=== PATIENT | male | born 1975 | race Caucasian/White ===

== ENCOUNTER 2017-01-15 09:44 | Inpatient (IN) | payer OTHER ==
[~2017-01-15] VITALS: Ht 177.8 cm; Wt 90.5 kg
[2017-01-15 09:56] LABS: BASOPHILS # (AUTO) 0.1 10^3/uL (0.0-0.1); BASOPHILS % (AUTO) 1 % (0-10); EOSINOPHILS # (AUTO) 0.1 10^3/uL (0.0-0.3); EOSINOPHILS % (AUTO) 2 % (0-10); LYMPHOCYTES # (AUTO) 2.2 X 10^3 (1.0-4.0); LYMPHOCYTES % (AUTO) 40 % (12-44); MEAN CORPUSCULAR HEMOGLOBIN 31 PG (25-34); MEAN CORPUSCULAR HGB CONC 36 G/DL (32-36); MEAN CORPUSCULAR VOLUME 86 FL (80-99); MEAN PLATELET VOLUME 9.4 FL (7.4-10.4); MONOCYTES # (AUTO) 0.8 X 10^3 (0.0-1.0); MONOCYTES % (AUTO) 14 % (0-12); NEUTROPHILS # (AUTO) 2.3 X 10^3 (1.8-7.8); NEUTROPHILS % (AUTO) 43 % (42-75); PLATELET COUNT 257 10^3/uL (130-400); RED BLOOD COUNT 5.08 10^6/uL (4.35-5.85); RED CELL DISTRIBUTION WIDTH 12.8 % (10.0-14.5); WHITE BLOOD COUNT 5.4 10^3/uL (4.3-11.0)
[2017-01-15 10:25] LABS: ALANINE AMINOTRANSFERASE 25 U/L (0-55); ALBUMIN 3.8 GM/DL (3.2-4.5); ALCOHOL < 10 MG/DL (<10); ANION GAP 8 MMOL/L (5-14); ASPARTATE AMINO TRANSFERASE 19 U/L (5-34); BILIRUBIN,TOTAL 0.6 MG/DL (0.1-1.0); BLOOD UREA NITROGEN 10 MG/DL (7-18); BUN/CREATININE RATIO 13; CALCIUM 8.8 MG/DL (8.5-10.1); CARBON DIOXIDE 25 MMOL/L (21-32); CHLORIDE 107 MMOL/L (98-107); CREATININE SERUM 0.76 MG/DL (0.60-1.30); GFR ESTIMATED > 60; GLUCOSE 109 MG/DL (70-105); POTASSIUM 3.4 MMOL/L (3.6-5.0); SODIUM 140 MMOL/L (135-145); TOTAL PROTEIN 6.3 GM/DL (6.4-8.2)
[2017-01-15] MEDS ORDERED: NS IV 1000 ML 1,000 ML ONE (10:28)
[2017-01-15] MEDS ORDERED: ONDANSETRON 4 MG/2 ML (SDV) Z0FRAN ONE (10:28)
[2017-01-15 10:30] LABS: TROPONIN I < 0.30 NG/ML (<0.30)
[2017-01-15] MEDS: NS IV 1000 ML 1,000 ML IV SCH ×4 (10:30→22:23)
[2017-01-15] MEDS ORDERED: ONDANSETRON 4 MG/2 ML (SDV) Z0FRAN IVP ONE (10:45)
[2017-01-15 11:06] LABS: KETONES,URINE 1+ (NEGATIVE); LEUKOCYTE ESTERASE ,URINE 1+ (NEGATIVE); NITRITE,URINE NEGATIVE (NEGATIVE); PH,URINE 6 (5-9); PROTEIN,URINE 2+ (NEGATIVE); UROBILINOGEN,URINE 8 MG/DL (NORMAL)
[2017-01-15 11:21] LABS: BILIRUBIN,URINE 1+ (NEGATIVE)
--- NOTE | 2017-01-15 11:49 | ED Neurological Problem ---
General Chief Complaint: General Problems/Pain Stated Complaint: POSS STROKE Nursing Triage Note: PT STATES HE FELL THURSDAY NIGHT AND HAD SUDDEN ONSET L SIDED WEAKNESS WELL NAUSEA AND VOMITING. STATES HE WAS UNABLE TO STAND AND REMAINED ON THE FLOOR UNTIL PD ARRIVED TODAY. CO VOMITING [facility] TODAY. Nursing Sepsis Screen: No Definite Risk Source: patient Exam Limitations: no limitations History of Present Illness Time seen by provider: 11:30 Initial Comments The patient is a 41-year-old white male. He reports that one week ago today he became weak on the left side of his body. He was on the floor and remained there until today. He had been able to drag himself to the bathroom. He denied any pain. He reports that yesterday he began to be able to use his left leg began and can straight leg lift with difficulty and he demonstrates this. He was able to straight leg lift on the left to 45 but was unable to lower it but rather let it drop. He has no past history of hypertension. He denies a headache. He was found by others who summoned the ambulance. Timing/Duration: 1 week Associated Symptoms: trouble walking, weakness Allergies and Home Medications Allergies Coded Allergies: No Known Drug Allergies (Unverified , 01/15/17) Constitutional: see HPI Eyes: No Symptoms Reported Ears, Nose, Mouth, Throat: no symptoms reported Cardiovascular: no symptoms reported Gastrointestinal: abdominal pain, loss of appetite, vomiting Genitourinary: no symptoms reported Musculoskeletal: muscle weakness Skin: no symptoms reported Psychiatric/Neurological: No Symptoms Reported Past Pirlqyf-Wvyrbz-Dfgwek Hx Patient Social History Alcohol Use: Rarely Uses Recreational Drug Use: Yes Drug of Choice: MARIJUANA Smoking Status: Current Everyday Smoker Type Used: Cigarettes Recent Foreign Travel: No Contact w/Someone Who Travel: No Recent Infectious Disease Expo: No Physical Exam Vital Signs Vital Sign - Last 12Hours 01/15/17 09:44 Temp 97.8 Pulse 90 Resp 16 B/P (MAP) 131/84 Pulse Ox 95 Capillary Refill : Less Than 3 Seconds General Appearance: other (the patient appears comfortable and his speech is clear) HEENT: normal ENT inspection Neck: full range of motion Respiratory: chest non-tender, lungs clear, normal breath sounds, no respiratory distress, no accessory muscle use, respiratory distress Cardiovascular: normal peripheral pulses, regular rate, rhythm, no edema, no gallop, no JVD, no murmur Gastrointestinal: other (tender to palpation particularly in the epigastrium. Bowel sounds are hypoactive.) Back: normal inspection Extremities: other (the left upper extremity is flaccid. There appears to be early flexion contractures at the hand. He is able to straight leg lift the left leg with great effort to 45. He is not able to smoothly lower the leg but rather lets it drop.) Crainal Nerves: normal hearing, normal speech, PERRL, facial droop (left), tongue deviation to L Skin: normal color, warm/dry Lymphatic: no adenopathy Progress/Results/Core Measures Results/Orders Lab Results Laboratory Tests Test 01/15/17 09:40 01/15/17 10:55 Range/Units White Blood Count 5.4 4.3-11.0 10^3/uL Red Blood Count 5.08 4.35-5.85 10^6/uL Hemoglobin 15.5 13.3-17.7 G/DL Hematocrit 44 40-54 % Mean Corpuscular Volume 86 80-99 FL Mean Corpuscular Hemoglobin 31 25-34 PG Mean Corpuscular Hemoglobin Concent 36 32-36 G/DL Red Cell Distribution Width 12.8 10.0-14.5 % Platelet Count 257 130-400 10^3/uL Mean Platelet Volume 9.4 7.4-10.4 FL Neutrophils (%) (Auto) 43 42-75 % Lymphocytes (%) (Auto) 40 12-44 % Monocytes (%) (Auto) 14 H 0-12 % Eosinophils (%) (Auto) 2 0-10 % Basophils (%) (Auto) 1 0-10 % Neutrophils # (Auto) 2.3 1.8-7.8 X 10^3 Lymphocytes # (Auto) 2.2 1.0-4.0 X 10^3 Monocytes # (Auto) 0.8 0.0-1.0 X 10^3 Eosinophils # (Auto) 0.1 0.0-0.3 10^3/uL Basophils # (Auto) 0.1 0.0-0.1 10^3/uL Sodium Level 140 135-145 MMOL/L Potassium Level 3.4 L 3.6-5.0 MMOL/L Chloride Level 107 98-107 MMOL/L Carbon Dioxide Level 25 21-32 MMOL/L Anion Gap 8 5-14 MMOL/L Blood Urea Nitrogen 10 7-18 MG/DL Creatinine 0.76 0.60-1.30 MG/DL Estimat Glomerular Filtration Rate > 60 BUN/Creatinine Ratio 13 Glucose Level 109 H 70-105 MG/DL Calcium Level 8.8 8.5-10.1 MG/DL Total Bilirubin 0.6 0.1-1.0 MG/DL Aspartate Amino Transf (AST/SGOT) 19 5-34 U/L Alanine Aminotransferase (ALT/SGPT) 25 0-55 U/L Alkaline Phosphatase 39 L 40-136 U/L Troponin I < 0.30 <0.30 NG/ML Total Protein 6.3 L 6.4-8.2 GM/DL Albumin 3.8 3.2-4.5 GM/DL Serum Alcohol < 10 <10 MG/DL Urine Color YELLOW Urine Clarity CLEAR Urine pH 6 5-9 Urine Specific [place] 1.020 1.016-1.022 Urine Protein 2+ H NEGATIVE Urine Glucose (UA) NEGATIVE NEGATIVE Urine Ketones 1+ H NEGATIVE Urine Nitrite NEGATIVE NEGATIVE Urine Bilirubin 1+ H NEGATIVE Urine Urobilinogen 8 H NORMAL MG/DL Urine Leukocyte Esterase 1+ H NEGATIVE Urine RBC (Auto) 1+ H NEGATIVE Urine RBC 2-5 H /HPF Urine WBC 2-5 /HPF Urine Squamous Epithelial Cells NONE /HPF Urine Crystals NONE /LPF Urine Bacteria NEGATIVE /HPF Urine Casts NONE /LPF Urine Mucus LARGE H /LPF Urine Culture Indicated NO Urine Opiates Screen NEGATIVE NEGATIVE Urine Oxycodone Screen NEGATIVE NEGATIVE Urine Methadone Screen NEGATIVE NEGATIVE Urine Propoxyphene Screen NEGATIVE NEGATIVE Urine Barbiturates Screen NEGATIVE NEGATIVE Ur Tricyclic Antidepressants Screen NEGATIVE NEGATIVE Urine Phencyclidine Screen NEGATIVE NEGATIVE Urine Amphetamines Screen NEGATIVE NEGATIVE Urine Methamphetamines Screen NEGATIVE NEGATIVE Urine Benzodiazepines Screen NEGATIVE NEGATIVE Urine Cocaine Screen NEGATIVE NEGATIVE Urine Cannabinoids Screen POSITIVE H NEGATIVE My Orders Orders - CARLOS WALKER MD Ekg Tracing (01/15/17 09:48) Alcohol (01/15/17 09:48) Cbc With Automated Diff (01/15/17 09:48) Comprehensive Metabolic Panel (01/15/17 09:48) Drug Screen Stat (Urine) (01/15/17 09:48) Troponin I (01/15/17 09:48) Ua Culture If Indicated (01/15/17 09:48) Ns Iv 1000 Ml (Sodium Chloride 0.9%) (01/15/17 10:45) Ondansetron Injection (Zofran Injectio (01/15/17 10:45) Ondansetron Injection (Zofran Injectio (01/15/17 10:28) Ns Iv 1000 Ml (Sodium Chloride 0.9%) (01/15/17 10:28) Ct Abd/Pelv W (Appendicitis) (01/15/17 11:38) Ct Head Wo (01/15/17 11:38) Iohexol Injection (Omnipaque 350 Mg/Ml 1 (01/15/17 12:00) Ns (Ivpb) (Sodium Chloride 0.9% Ivpb Bag (01/15/17 12:00) Medications Given in ED Current Medications Medications Dose Ordered Sig/Lis Route Start Time Stop Time Status Last Admin Dose Admin Iohexol 100 ml ONCE ONCE IV 01/15/17 12:00 01/15/17 12:01 DC 01/15/17 12:28 100 ML Ondansetron HCl 8 mg ONCE ONCE IVP 01/15/17 10:45 01/15/17 10:46 DC 01/15/17 10:30 8 MG Sodium Chloride 100 ml ONCE ONCE IV 01/15/17 12:00 01/15/17 12:01 DC 01/15/17 12:28 80 ML Vital Signs/I&O Vital Sign - Last 12Hours 01/15/17 09:44 Temp 97.8 Pulse 90 Resp 16 B/P (MAP) 131/84 Pulse Ox 95 Blood Pressure Mean: 100 Departure Communication Progress Notes 1354 CT scans were negative. Discussed with IRF and they will come to ER with PT to evaluate appropriateness 1449 staff from the IRF and the physical therapy department came to the emergency room and evaluated the patient. They agree that there appears to be a left-sided abnormality but the history believes a lot to be desired. It was agreed that we would admit him for observation and do an MRI in the morning. I discussed this with Dr. Suh who is the hospitalist and she agrees. Impression Impression: Primary Impression: left-sided weakness/apparent hemiparesis Disposition: ADMITTED INPATIENT Condition: Stable/Unchanged Departure-Patient Inst. Referrals: NO,LOCAL PHYSICIAN (PCP/Family) Primary Care Physician CARLOS WALKER MD Jan 15, 2017 11:49
[2017-01-15] MEDS ORDERED: NS 100 ML (IVPB) BAG IV ONE (12:00)
[2017-01-15] MEDS ORDERED: IOHEXOL 350 MG/ML 100 ML (OMNIPAQUE 350) VIAL IV ONE (12:00)
--- NOTE | 2017-01-15 12:37 | Diagnostic Imaging Report ---
PROCEDURE: CT head without contrast. TECHNIQUE: Multiple contiguous axial images were obtained through the brain without the use of intravenous contrast. INDICATION: Left-sided paralysis. COMPARISON: None FINDINGS: No acute intracranial hemorrhage, mass effect or edema is demonstrated. Whalen-white junction is preserved. Ventricles appear normal. No focal abnormality is demonstrated. The paranasal sinuses and mastoids are clear as visualized. IMPRESSION: No evidence of an acute intracranial abnormality. Dictated by: Dictated on workstation # [id number]
--- NOTE | 2017-01-15 12:49 | Diagnostic Imaging Report ---
PROCEDURE: CT abdomen and pelvis with contrast, rule out appendicitis. TECHNIQUE: Multiple contiguous axial images were obtained through the abdomen and pelvis after the administration of intravenous contrast. INDICATION: Possible appendicitis. COMPARISON: None. FINDINGS: The lung bases are clear. There is some focal low-density adjacent to the falciform ligament which is likely some focal fatty change. The gallbladder appears unremarkable. The portal vein enhances normally. There is no biliary dilatation. The pancreas, spleen, and adrenal glands appear unremarkable. There are a couple of probable tiny cysts in left renal cortex, and there is a slightly larger 2.0-cm cyst in the inferior right renal cortex. The kidneys are otherwise unremarkable in appearance. The ureters and bladder appear unremarkable. The appendix appears normal. There is no evidence of bowel obstruction or focal inflammatory process. There is no ascites or free air. No abnormally enlarged lymph nodes are demonstrated. Abdominal aorta appears normal in caliber. The osseous structures appear unremarkable. IMPRESSION: 1. The appendix appears normal. No acute focal inflammatory process is suspected. 2. Probable focal fatty change about the falciform ligament of the liver. 3. Bilateral renal cysts. Dictated by: Dictated on workstation # [id number]
[2017-01-15 15:40] VITALS: BP 119/77
--- NOTE | 2017-01-15 17:58 | Consultation-Cardiology ---
HPI-Cardiology Cardiology Consultation: Date of Consultation 01/15/17 Time Seen by Provider: 17:40 Date of Admission Attending Physician Amy Suh DO Admitting Physician Kimberly,Local Physician Consulting Physician MIKE MAGANA MD, MA, FACP, FACC, [facility], CCDS Physician requesting consult: Dr Casillas / Dr Suh HPI: Chief Complaint: L-sided weakness HPI: 41 yo man who has had L-sided profound weakness for the last approx one week and was brought to the ER by his friend and admitted to Dr Suh He denies cp or palp or syncope or leg swelling or fever or chills Review of Systems-Cardiology Review of Systems Constitutional: malaise, tiredness, No weight loss, No weight gain Eyes: No vision change Ears/Nose/Throat: No ear discharge, No nasal drainage, No recent hearing loss Respiratory: As described under HPI Cardiovascular: As described under HPI Gastrointestinal: No constipation, No diarrhea, No nausea, No vomiting Genitourinary: No dysuria, No hematuria, No urine frequency changes Musculoskeletal: No back pain Skin: No rash, No ulcerations Psychiatric/Neurological: As described under HPI Hematologic: No bleeding abnormalities AWE-Dgnngg-Cleykc Hx Patient Social History Alcohol Use: Rarely Uses Recreational Drug Use: Yes Drug of Choice: MARIJUANA Smoking Status: Current Everyday Smoker Type Used: Cigarettes Recent Foreign Travel: No Recent Infectious Disease Expo: No Past Medical History PMH As described under Assessment. Family Medical History Family Medical History: Mother had irreg heart beat and hypertension in her 40s Allergies and Home Medications Allergies Coded Allergies: No Known Drug Allergies (Unverified , 01/15/17) Home Medications No Active Prescriptions or Reported Meds Physical Exam-Cardiology Physical Exam Vital Signs/I&O Vital Sign - Last 12Hours 01/15/17 01/15/17 01/15/17 01/15/17 09:44 15:23 15:40 15:40 Temp 97.8 98.0 Pulse 90 96 91 Resp 16 16 20 B/P (MAP) 131/84 119/77 Pulse Ox 95 96 97 97 O2 Delivery Room Air Room Air Capillary Refill : Less Than 3 Seconds Constitutional: AAO x 3, well-developed, well-nourished HEENT: No PERRL, No EOMI, No xanthelasmas are seen Neck: No carotid bruit, carotid pulses are 2 + bilaterally, with good upstrokes Respiratory: No accessory muscle use, No stridor, other (good bilat air entry) Cardiovascular: regular rate-rhythm, S1 and S2, systolic murmur (faint CHERRY at cardiac base) Gastrointestinal: No tender, soft, No guarding, No rebound, audible bowel sounds Extremities: No pedal edema, No clubbing, No cyanosis Neurologic/Psychiatric: oriented x 3, motor weakness (3/5 power in the L upper and lower limbs) Skin: No rash on exposed areas, No ulcerations on exposed areas Lymphatic: no adenopathy Data Review Labs Laboratory Tests 01/15/17 09:40: White Blood Count 5.4, Red Blood Count 5.08, Hemoglobin 15.5, Hematocrit 44, Mean Corpuscular Volume 86, Mean Corpuscular Hemoglobin 31, Mean Corpuscular Hemoglobin Concent 36, Red Cell Distribution Width 12.8, Platelet Count 257, Mean Platelet Volume 9.4, Neutrophils (%) (Auto) 43, Lymphocytes (%) (Auto) 40, Monocytes (%) (Auto) 14H, Eosinophils (%) (Auto) 2, Basophils (%) (Auto) 1, Neutrophils # (Auto) 2.3, Lymphocytes # (Auto) 2.2, Monocytes # (Auto) 0.8, Eosinophils # (Auto) 0.1, Basophils # (Auto) 0.1, Sodium Level 140, Potassium Level 3.4L, Chloride Level 107, Carbon Dioxide Level 25, Anion Gap 8, Blood Urea Nitrogen 10, Creatinine 0.76, Estimat Glomerular Filtration Rate > 60, BUN/ Creatinine Ratio 13, Glucose Level 109H, Calcium Level 8.8, Total Bilirubin 0.6 , Aspartate Amino Transf (AST/SGOT) 19, Alanine Aminotransferase (ALT/SGPT) 25, Alkaline Phosphatase 39L, Troponin I < 0.30, Total Protein 6.3L, Albumin 3.8, Serum Alcohol < 10 01/15/17 10:55: Urine Color YELLOW, Urine Clarity CLEAR, Urine pH 6, Urine Specific [place] 1.020, Urine Protein 2+H, Urine Glucose (UA) NEGATIVE, Urine Ketones 1+H, Urine Nitrite NEGATIVE, Urine Bilirubin 1+H, Urine Urobilinogen 8H, Urine Leukocyte Esterase 1+H, Urine RBC (Auto) 1+H, Urine RBC 2-5H, Urine WBC 2-5, Urine Squamous Epithelial Cells NONE, Urine Crystals NONE, Urine Bacteria NEGATIVE, Urine Casts NONE, Urine Mucus LARGEH, Urine Culture Indicated NO, Urine Opiates Screen NEGATIVE, Urine Oxycodone Screen NEGATIVE, Urine Methadone Screen NEGATIVE, Urine Propoxyphene Screen NEGATIVE, Urine Barbiturates Screen NEGATIVE , Ur Tricyclic Antidepressants Screen NEGATIVE, Urine Phencyclidine Screen NEGATIVE, Urine Amphetamines Screen NEGATIVE, Urine Methamphetamines Screen NEGATIVE, Urine Benzodiazepines Screen NEGATIVE, Urine Cocaine Screen NEGATIVE, Urine Cannabinoids Screen POSITIVEH Laboratory Tests 01/15/17 09:40 ECG Impression ECG Comment ECG on 01/15/17: NSR A/P-Cardiology Assessment/Admission Diagnosis Acute L hemiparesis of unclear etiology, being managed by Dr Suh ?UTI, being managed by Dr Suh No evidence of any acute cardiac issues No other history reported Denies drug use, but urine positive for cannabinoids Discussion and Recomendations * Tele x 24 hours to evaluate for any arrhythmia * Replenish K * Carotid u/s * Echo * Treatment of possible stroke/UTI is with Dr Suh Clinical Quality Measures DVT/VTE Risk/Contraindication: Risk Factor Score Per Nursin RFS Level Per Nursing on Admit: 4+=Very High MIKE MAGANA MD FACP FAC CCDS Jan 15, 2017 17:58
[2017-01-15] MEDS ORDERED: ENOXAPARIN 40 MG/0.4 ML (LOVENOX) SYR SC SCH (18:15)
[2017-01-15] MEDS ORDERED: POTASSIUM CL 10MEQ/50ML IVPB 50 ML IV NR (18:25)
[2017-01-15 20:00] VITALS: BP 135/79
[2017-01-16] VITALS: BP 121/64
[2017-01-16] MEDS: NS IV 1000 ML 1,000 ML IV SCH ×4 (02:30→16:53)
[2017-01-16 04:00] VITALS: BP 136/73
[2017-01-16 04:58] LABS: MEAN PLATELET VOLUME 9.5 FL (7.4-10.4); RED BLOOD COUNT 4.91 10^6/uL (4.35-5.85); RED CELL DISTRIBUTION WIDTH 12.8 % (10.0-14.5)
[2017-01-16 05:46] LABS: ANION GAP 10 MMOL/L (5-14); BLOOD UREA NITROGEN 6 MG/DL (7-18); BUN/CREATININE RATIO 9; CALCIUM 8.4 MG/DL (8.5-10.1); CARBON DIOXIDE 20 MMOL/L (21-32); CHLORIDE 110 MMOL/L (98-107); CREATININE SERUM 0.69 MG/DL (0.60-1.30); GFR ESTIMATED > 60; GLUCOSE 89 MG/DL (70-105); MAGNESIUM 1.9 MG/DL (1.8-2.4); POTASSIUM 3.8 MMOL/L (3.6-5.0); SODIUM 140 MMOL/L (135-145)
[2017-01-16 06:13] LABS: THYROID STIMULATING HORMONE 0.44 UIU/ML (0.35-4.94)
[2017-01-16 08:00] VITALS: BP 131/70
--- NOTE | 2017-01-16 08:45 | History & Physical-Hospitalist ---
HPI History of Present Illness: HPI/Chief Complaint CC: Left sided weakness x 7 days HPI: This is a 41-year-old white male smoker but hasn't seen a physician in the very long time the presents to the emergency room after his neighbor brought him in after an abrupt onset of left-sided weakness 7 days prior. He did not seek medical attention until yesterday. CT scan did not show any acute stroke so MRI will be performed and I have consulted cardiology for further risk stratification for stroke protocol. Physical therapy did see him found him to have increasing strength and was able to walk but peculiar signs on physical exam that are not really consistent with a stroke but unsure of the source of his debility. Source: patient Exam Limitations: no limitations Date Seen 01/16/17 Time Seen by Provider: 07:30 Attending Physician Amy Suh DO PCP No,Local Physician Referring Physician Date of Admission Jan 15, 2017 at 15:11 Home Medications & Allergies Home Medications Reviewed patient Home Medication Reconciliation Form Allergies Allergies Coded Allergies No Known Drug Allergies (Unverified01/15/17) Past Vbhxsfd-Yebaum-Qtzloq Hx Patient Social History Marrital Status: single Employed/Student: unemployed Alcohol Use: Rarely Uses Recreational Drug Use: Yes Drug of Choice: MARIJUANA Smoking Status: Current Everyday Smoker Type Used: Cigarettes Recent Foreign Travel: No Contact w/other who traveled: No Recent Infectious Disease Expo: No Surgeries HX Surgeries: No Respiratory Hx Respiratory Disorders: No Cardiovascular Hx Cardiovascular Disorders: No Neurological Hx Neurological Disorders: No Genitourinary Hx Genitourinary Disorders: No Gastrointestinal Hx Gastrointestinal Disorders: No Musculoskeletal Hx Musculoskeletal Disorders: No Endocrine Hx Endocrine Disorders: No HEENT HX ENT Disorders: No Cancer Hx Cancer: No Psychosocial Hx Psychiatric Problems: No Integumentary HX Skin/Integumentary Disorder: No Review of Systems Constitutional: see HPI, dizziness, weakness EENTM: no symptoms reported Respiratory: no symptoms reported Cardiovascular: no symptoms reported Gastrointestinal: no symptoms reported Genitourinary: decreased output Musculoskeletal: no symptoms reported Skin: no symptoms reported Psychiatric/Neurological: Weakness (left side) Physical Exam Physical Exam Vital Signs Vital Sign - Last 12Hours 01/15/17 09:44 Temp 97.8 Pulse 90 Resp 16 B/P (MAP) 131/84 Pulse Ox 95 Capillary Refill : Less Than 3 Seconds General Appearance: No Apparent Distress, WD/WN, Chronically ill Eyes: Bilateral Eye Normal Inspection, Bilateral Eye PERRL HEENT: PERRL/EOMI, Normal ENT Inspection, Pharynx Normal Neck: Full Range of Motion, Normal Inspection, Non Tender, Supple, Carotid Bruit Respiratory: Chest Non Tender, Lungs Clear, Normal Breath Sounds, No Accessory Muscle Use, No Respiratory Distress Cardiovascular: Regular Rate, Rhythm, No Edema, No Gallop, No JVD, No Murmur, Normal Peripheral Pulses Gastrointestinal: Normal Bowel Sounds, No Organomegaly, No Pulsatile Mass, Non Tender, Soft Back: Normal Inspection, No CVA Tenderness, No Vertebral Tenderness Extremity: Normal Capillary Refill, Normal Inspection, Normal Range of Motion, Non Tender, No Calf Tenderness, No Pedal Edema Neurologic/Psychiatric: Alert, Oriented x3, Normal Mood/Affect, Motor Weakness (left arm, hand and leg 1/5 strength) Skin: Normal Color, Warm/Dry Lymphatic: No Adenopathy Results Results/Procedures Lab Laboratory Tests 01/15/17 09:40 01/16/17 04:35 Assessment/Plan Admission Diagnosis Assessment: Subacute onset of left-sided weakness CT negative for stroke but MRI pending Smoker Dehydration Marijuana use Assessment and Plan Plan: Physical therapy occupational therapy appreciated Check MRI Ambulate Out of bed Appreciate cardiology risk stratification Clinical Quality Measures DVT/VTE Risk/Contraindication: Risk Factor Score Per Nursin RFS Level Per Nursing on Admit: 4+=Very High AMY SUH DO Jan 16, 2017 08:45
--- NOTE | 2017-01-16 09:57 | Occupational Therapy Eval ---
OT Evaluation-General/PLF Medical Diagnosis Admission Date Jan 15, 2017 at 15:11 Medical Diagnosis: L sided weakness, hemiparesis Onset Date: Jan 15, 2017 Therapy Diagnosis Therapy Diagnosis: weakness, decr self care, decr coord, decr funct mob, decr funct use L UE Height/Weight Height (Feet): 5 Height (Inches): 10.00 Weight (Pounds): 199 Weight (Ounces): 7.0 Precautions Precautions/Isolations: Fall Prevention, Standard Precautions Safety Interventions: None Referral Physician: Angeli Referral Reason: Evaluation/Treatment Medical History Pertinent Medical History: Smoking Current History Pt reported that he fell on 01-09 with sudden L sided weakness. He was on the floor until his ex girlfriend found him on . He said that he has gotten some return in his L Leg and UE and was able to get up to the toilet at home and to the refrigerator. Reviewed History: Yes Social History Home: Apartment Current Living Status: Significant Other Entry Into Home: Level Entry ADL-Prior Level of Function ADL PLOF Comments Pt reported that he has been able to manage his basic self care needs. 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 DME/Equipment Comments Unknown equipment Occupation: disabled Drive Self: No OT Current Status Subjective Pt seen in room, up in bed, agreeable to OT. Pt reported pain 0/10 but did react with soreness with L UE movement Appearance Alert, cooperative Mental Status/Objective Patient Orientation: Person, Place, Time, Situation Attachments: IV, SCD's, Telemetry Current Hearing Aids: No Hand Dominance: Left Upper Extremity ROM R UE WFL. L UE shoulder approx 90 degrees flex/abd, elbow flex/ext grossly WFL, pron/sup WFL, wrist flex/ext WFL, gross finger flex WFL, finger ext WFL Upper Extremity Coordination Impaired Upper Extremity Sensation Pt reported L UE felt "different" and all fingers were a little numb Upper Extremity Strength L shoulder 2/5 flex and abd. L elbow 3+/5, pron/sup 3+/5, wrist ext 2+/5, finger flex 3+/5 All grossly Edema: Slight edema noted in fingers ADL-Treatment ADL-Current Pt said that he has walked to the bathroom with staff assistance. He has been feeding himself but said that he is currently NPO. Functional [place] Measure 0=Not Assessed/NA 4=Minimal Assistance 1=Total Assistance 5=Supervision or Setup 2=Maximal Assistance 6=Modified [place] 3=Moderate Assistance 7=Complete IndependenceIRFPAI Quality Coding Scale 6 Independent with activity with or without an assistive device 5 Patient requires set up or clean up by helper. Patient completes activity by themselves 4 Supervision or touching assist (CGA). [place] provide cues , steadying assist 3 The helper provides less than half the effort to complete the activity 2 The helper provides more than half the effort to complete the activity 1 Dependent. The helper does all the effort to complete an activity 7 Patient refused to complete or attempt activity 9 The patient did not perform the activity before the current illness or injury 88 Not attempted due to Medical conditions or safety concerns Other Treatments Pt transitioned from supine to sit EOB with SBA. He was able to scoot to EOB but tended to lean to both left and right sides during activities. Skilled facilitation techniques to work on arm movements and coordination. He tended to tense muscles as he tried to move them and, at one point, showed muscle spasms in L UE, controlled with relaxation. When L hand placed on mattress, he was able to scoot up toward head of bed. Also worked with shoulder function and pt reported some soreness and tightness in shoulders, perla L. Pt back to supine with just a little help lifting L leg, 4 rails up, all needs met. Education OT Patient Education: Purpose of tx/functional activities, Rehab process Teaching Recipient: Patient Teaching Methods: Discussion Response to Teaching: Verbalize Understanding OT Usp Goals Usp Goals Time Frame: Jan 23, 2017 Eating (FIM): 6 Grooming(FIM): 6 Bathing(FIM): 5 Upper Body Dressing(FIM): 6 Lower Body Dressing(FIM): 6 Toileting(FIM): 6 Toilet/Commode Transfer(FIM): 6 Shower Transfer(FIM): 5 Additional Goals: 1-Demonstrate ADL Tasks, 2-Verbalize Understanding, 3- ImproveStrength/Deondre 1=Demonstrate adherence to instructed precautions during ADL tasks. 2=Patient will verbalize/demonstrate understanding of assistive devices/ modifications for ADL. 3=Patient will improve strength/tolerance for activity to enable patient to perform ADL's. OT Education/Plan Problem List/Assessment Assessment: Decreased UE Strength, Dependent Transfers, Impaired Coordination, Impaired Funct Balance, Impaired Self-Care Skills Pt would benefit from skilled OT to increase his independence in basic self care to allow him to safely return to his home after L sided weakness Discharge Recommendations Plan/Recommendations: Continue POC Treatment Plan/Plan of Care Treatment,Training & Education: Yes Patient would benefit from OT for education, treatment and training to promote independence in ADL's, mobility, safety and/or upper extremity function for ADL' s. Plan of Care: ADL Retraining, Functional Mobility, UE Funct Exercise/Act, UE Neuromus Re-Ed/Coord Treatment Duration: Jan 23, 2017 Frequency: 6 times per week Estimated Hrs Per Day: .5 hour per day Agreement: Yes Rehab Potential: Good Time/GCodes Start Time: 08:35 Stop Time: 09:15 Total Time Billed (hr/min): 40 Billed Treatment Time visit, evaluation moderate intensity 15 minutes, neuromotor 25 minutes BALTA DUMONT OT Jan 16, 2017 09:57
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
[2017-01-16] MEDS ORDERED: GADOBUTROL 10 MMOL/10 ML (GADAVIST) VIAL IV ONE (12:45)
--- NOTE | 2017-01-16 14:13 | Occupational Ther Daily Note ---
OT Current Status-Daily Note Subjective Pt seen in room, in bed, reporting that he was "beat" after MRI test. Mental Status/Objective Functional [place] Measure 0=Not Assessed/NA 4=Minimal Assistance 1=Total Assistance 5=Supervision or Setup 2=Maximal Assistance 6=Modified [place] 3=Moderate Assistance 7=Complete [place] Other Treatment Pt was provided with yellow sponge home administrator (gentle resistance) and yellow theraputty (gentle resistance). Pt educ on different exercises and activities he could do with them and he recalled one from this am tx. Pt encouraged to use L UE to feed himself and he reported that he pushed a drink can in his L hand and took a drink. Pt verbalized understanding of use of equipment and exercises. All needs met. Education OT Patient Education: Exercise program, Purpose of tx/functional activities Teaching Recipient: Patient Teaching Methods: Demonstration, Discussion Response to Teaching: Verbalize Understanding OT Short Term Goals Short Term Goals 1=Demonstrate adherence to instructed precautions during ADL tasks. 2=Patient will verbalize/demonstrate understanding of assistive devices/ modifications for ADL. 3=Patient will improve strength/tolerance for activity to enable patient to perform ADL's. OT Manager Management Goals Manager Management Goals Time Frame: Jan 23, 2017 Eating (FIM): 6 Grooming(FIM): 6 Bathing(FIM): 5 Upper Body Dressing(FIM): 6 Lower Body Dressing(FIM): 6 Toileting(FIM): 6 Toilet/Commode Transfer(FIM): 6 Shower Transfer(FIM): 5 Additional Goals: 1-Demonstrate ADL Tasks, 2-Verbalize Understanding, 3- ImproveStrength/Deondre 1=Demonstrate adherence to instructed precautions during ADL tasks. 2=Patient will verbalize/demonstrate understanding of assistive devices/ modifications for ADL. 3=Patient will improve strength/tolerance for activity to enable patient to perform ADL's. OT Education/Plan Problem List/Assessment Pt would benefit from skilled OT to increase his independence in basic self care to allow him to safely return to his home after L sided weakness Discharge Recommendations Plan/Recommendations: Continue POC Treatment Plan/Plan of Care Patient would benefit from OT for education, treatment and training to promote independence in ADL's, mobility, safety and/or upper extremity function for ADL' s. Plan of Care: ADL Retraining, Functional Mobility, UE Funct Exercise/Act, UE Neuromus Re-Ed/Coord Treatment Duration: Jan 23, 2017 Frequency: 6 times per week Estimated Hrs Per Day: .5 hour per day Agreement: Yes Rehab Potential: Good Time/GCodes Start Time: 13:55 Stop Time: 14:05 Total Time Billed (hr/min): 10 Billed Treatment Time visit, 10 minutes exercise BALTA DUMONT OT Jan 16, 2017 14:13
--- NOTE | 2017-01-16 14:43 | Progress Note-Cardiology ---
Cardiology SOAP Progress Note Subjective: In bed. States he feels better today, but c/o fatigue. C/O chills and sweats. No c/o CP, palpitations, syncope or near syncope. No c/o dyspnea Objective: I&O/Vital Signs Vital Sign - Last 12Hours 01/16/17 01/16/17 01/16/17 01/16/17 07:00 08:00 09:00 16:00 Temp 98.6 99.2 Pulse 82 86 86 Resp 18 20 B/P (MAP) 131/70 117/60 Pulse Ox 95 92 O2 Delivery Room Air Room Air Room Air Intake and Output 01/17/17 00:00 Intake Total 240 ml Output Total 600 ml Balance -360 ml Weight (Pounds): 199 Weight (Ounces): 7.0 Weight (Calculated Kilograms): 90.804910 Constitutional: AAO x 3, well-developed, well-nourished Respiratory: No accessory muscle use, No stridor, other (good bilat air entry) Cardiovascular: regular rate-rhythm, S1 and S2, systolic murmur (faint CHERRY at cardiac base) Gastrointestional: No tender, soft, No guarding, No rebound, audible bowel sounds Extremities: No pedal edema, No clubbing, No cyanosis Neurologic/Psychiatric: oriented x 3, motor weakness (4/5 power in the L upper and lower limbs) Skin: No rash on exposed areas, No ulcerations on exposed areas Results/Procedures: Labs Laboratory Tests 01/16/17 04:35: White Blood Count 5.0, Red Blood Count 4.91, Hemoglobin 14.9, Hematocrit 43, Mean Corpuscular Volume 88, Mean Corpuscular Hemoglobin 30, Mean Corpuscular Hemoglobin Concent 35, Red Cell Distribution Width 12.8, Platelet Count 257, Mean Platelet Volume 9.5, Sodium Level 140, Potassium Level 3.8, Chloride Level 110H, Carbon Dioxide Level 20L, Anion Gap 10, Blood Urea Nitrogen 6L, Creatinine 0.69, Estimat Glomerular Filtration Rate > 60, BUN/Creatinine Ratio 9 , Glucose Level 89, Calcium Level 8.4L, Magnesium Level 1.9, Thyroid Stimulating Hormone (TSH) 0.44 A/P: Assessment: Acute L hemiparesis of unclear etiology, being managed by Dr Suh Mild carotid arterial disease reported on carotid u/s or 01/16/17 Echo of 01/16/17: LVEF 60-65%, no significant valvular heart disease ?UTI, being managed by Dr Suh No evidence of any acute cardiac issues No other history reported Denies drug use, but urine positive for cannabinoids Plan: * No arrhythmia documented thus far - dc tele * Replenish K * Carotid u/s - results pending * Echo - pending * Treatment of possible stroke/UTI is with Dr Suh * Continue PT Physician Assessment Physician Assessment No cp or palp or syncope or shortness of breath Cor: reg Lungs: clear Ext: no c/c/e A&R * As documented in our note above that I updated (italics) and as noted below * I discussed with him his card and carotid w/u and answered questions * Low dose aspirin due to mild carotid art disease reported on carotid u/s NASH DELGADO REMELT OPERATOR Jan 16, 2017 14:43 MIKE MAGANA MD FACP FAC CCDS Jan 16, 2017 17:05
--- NOTE | 2017-01-16 15:22 | Diagnostic Imaging Report ---
PROCEDURE: US carotid duplex bilateral. TECHNIQUE: Multiple real-time grayscale images were obtained over the carotid arteries in various projections bilaterally. Additional duplex Doppler and color Doppler images were also obtained. INDICATION: Left hemiparesis. COMPARISON: There are no prior studies available for comparison. FINDINGS: There is mild soft plaque formation within both carotid systems. The flow velocities fail to show any sign of a hemodynamically significant stenosis. Both vertebral arteries are identified and there is antegrade flow, bilaterally. IMPRESSION: There is mild atherosclerotic disease involving both carotid systems. There is no evidence for a hemodynamically significant stenosis of the common or internal carotid arteries, however. Dictated by: Dictated on workstation # [id number]
--- NOTE | 2017-01-16 15:57 | Diagnostic Imaging Report ---
CLINICAL INDICATION: Patient is having left-sided paralysis. Recent head CT. EXAM: MRI of the brain performed without and with 10 cc of Gadovist IV contrast. Sequences include axial DWI, ADC map, axial gradient echo, axial T2, axial FLAIR, axial T1, axial T1 post IV contrast, coronal T1 fat-sat post IV contrast, and sagittal T1 post IV contrast. COMPARISON: None. FINDINGS: There is no evidence of acute cerebral infarct, intracranial hemorrhage, or gross mass effect. There is no abnormal IV contrast enhancement. Partial empty sella turcica is seen. There are a couple of patchy areas of high T2 signal white matter changes in the periventricular regions of the right frontal lobe and left parietal lobe. The one in the right frontal lobe measures 5 mm and the one in the left parietal lobe measures 7 mm. Otherwise, the remainder of the brain parenchyma is unremarkable with normal llanos-white matter distinction. The brain parenchymal volume appears appropriate for patient's age. There is no significant midline shift or herniation. The [place] vascular structures show no gross abnormality as visualized. There is no evidence of hydrocephalus. The basal cisterns are unremarkable. The skull, extracranial soft tissue, and orbits are unremarkable. The paranasal sinuses are unremarkable. Temporal bone structures show no significant abnormality. IMPRESSION: 1: There is no evidence of acute cerebral infarction, intracranial hemorrhage, hydrocephalus, or enhancing mass. 2: There are nonspecific areas of high T2 signal white matter changes in the periventricular right frontal lobe and periventricular left parietal lobe. A demyelinating process cannot be completely excluded. Small vessel ischemic disease may also be considered. Dictated by: Dictated on workstation # [id number]
[2017-01-16 16:00] VITALS: BP 117/60
[2017-01-16] MEDS ORDERED: ASPIRIN 81 MG CHEW (CHILDREN'S ASA) PO NR (17:30)
[2017-01-16 20:01] VITALS: BP 114/71
[2017-01-17] VITALS: BP 130/81
[2017-01-17] MEDS: NS IV 1000 ML 1,000 ML IV SCH ×3 (00:57→08:23)
[2017-01-17 04:07] VITALS: BP 117/67
[2017-01-17 07:00] VITALS: BP 132/71
[2017-01-17] MEDS ORDERED: ASPIRIN 81 MG CHEW (CHILDREN'S ASA) PO SCH (09:00)
[2017-01-17] MEDS ORDERED: ASPI-999 PO (10:28)
[2017-01-17] MEDS ORDERED: ATOR80TA64 PO (10:28)
--- NOTE | 2017-01-17 10:37 | Discharge Summary-Hospitalist ---
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 Mckenna Discharge Physical Examination Allergies: Coded Allergies: No Known Drug Allergies (Unverified , 01/15/17) Vitals & I&Os Vital Signs Date Time Temp Pulse Resp B/P (MAP) Pulse Ox O2 Delivery O2 Flow Rate FiO2 01/17/17 09:00 96 Room Air 01/17/17 07:00 97.9 84 24 132/71 General Appearance: Alert, Oriented X3, Other (combative) HEENT: Other (heart) Respiratory: Clear to Auscultation Cardiovascular: Regular Rate, Normal S1, Normal S2 Abdominal: Normal Bowel Sounds, Soft Extremities: Other (weakness of the left hand gait normal) Skin: No Rashes Neuro: Normal Gait, Other Psych/Mental Status: Other (agitated) Hospital Course patient was admitted with signs of left hemiparesis of the upper extremity. MRI of the brain confirmed small vessel disease and possible demyelination. The patient continued to go outside to smoke throughout the hospitalization. When advised that this was against hospital policy he became very agitated and combative. He was anxious to go home without further evaluation. He agrees to take his aspirin and to return as an outpatient for occupational therapy. Lipid profile is pending but he is discharged on Lipitor 80 mg a day. He has no physician at home and is recommended that he call Dr. Matias in [facility] for an appointment. At the time of discharge the patient is able to walk outside and almost run to smoke cigarettes and is anxious to go home. 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 Discharge Home Medications: Active Scripts Active Lipitor (Atorvastatin Calcium) 80 Mg Tablet 80 Mg PO DAILY 30 Days Aspirin 81 Mg Tab.chew 81 Mg PO DAILY 90 Days Condition at discharge stable Instructions to patient/family Please see electonic discharge instructions given to patient. Clinical Quality Measures DVT/VTE Risk/Contraindication: Risk Factor Score Per Nursin RFS Level Per Nursing on Admit: 4+=Very High Smoking Cessation Counseling: Counseling-Symptomatic: 10+Minutes Discussed Options Including: Nicotine Gum LEON ZAVALA MD Jan 17, 2017 10:37
[2017-01-17 10:38] LABS: CHOLESTEROL 120 MG/DL (< 200); DIRECT LDL 90 MG/DL (1-129); TRIGLYCERIDES 96 MG/DL (<150); VLDL CHOLESTEROL 19 MG/DL (5-40)
--- NOTE | 2017-01-17 12:04 | Occ Therapy Progress Note ---
Therapy Progress Note Attempted to see pt. this morning. Nursing notified this OT that pt. had already discharged. [id number] RANDI TONY OT Jan 17, 2017 12:04
== END 2017-01-17 10:40 | disposition home or self-care (01) | DRG 65 ==
LOC: ER 09:46 → 4TH 15:11 → INTOOBSV 15:11 → OBSVTOIN 15:11 → UNDOADMOB 15:11 → 4TH 15:21 → ER 15:23 → 4TH 15:40 → OBSVTOIN 01-16 09:15 → UNDODISIN 01-17 10:40
PROVIDERS: ADMIT Internal Medicine; ATTEND Internal Medicine
DX: I63.9 Cerebral infarction, unspecified (principal); G81.94 Hemiplegia, unspecified affecting left nondominant side; R29.810 Facial weakness; E86.0 Dehydration; F17.210 Nicotine dependence, cigarettes, uncomplicated; F12.10 Cannabis abuse, uncomplicated; F31.9 Bipolar disorder, unspecified; I73.9 Peripheral vascular disease, unspecified
CPT/HCPCS: 36415; 70450; 70553; 74177; 80048; 80053; 80061; 80306; 80320; 81000; 83735; 84443; 84484; 85025; 85027; 93005; 93306; 93880; 96361; 96374; G0378